=== PATIENT | male | born 1975 | race Caucasian/White ===

== ENCOUNTER 2018-04-01 15:19 | Outpatient (CLI) | payer BC, SELFPAY ==
[2018-04-01] VITALS (12 sets, daily range): BP systolic 90–106; BP diastolic 54–62; PULSE 74–94; RESP 16–20; TEMP 36.7–36.9; O2SAT 98–100; BMI 25.5
[2018-04-01] MEDS: DiphenhydrAMINE 25 MG Capsule PO (16:12)
[2018-04-01] MEDS: Acetaminophen 325 MG Tablet 650 MG PO (16:12)
[2018-04-01] MEDS: Immune Globulin 20 gm Premixed Solution IV ×3 (16:42→20:01)
--- NOTE | 2018-04-01 17:19 | NURSING ---
pt arrived from infusion center.. IVIG was started in infusion center and continued on floor.
[2018-04-01] MEDS: Immune Globulin 10 gm Premixed Solution IV (20:55)
--- NOTE | 2018-04-01 21:35 | NURSING ---
PT was able to reach 4 mg/kg on his IVIG infusion. He could have been increased to 4.5 but there was an emergency on the floor and this RN had to leave pt's side immediately. He denies having any difficulties and he is voiding fine. Vital signs are stable. Pt and were instructed on possible side effects and a way to contact the physician if they have concerns or can come to ER. Pt's saline lock was left in because he is returning for another infusion on 04/02/18. Talked to ER registration to see if they knew when pt was to come back to infusion center and they are not aware of any information. Advised pt to contact nursing train operations supervisor on 04/02/18 to confirm arrangements.
== END 2018-04-01 21:45 | disposition home or self-care (01) ==
LOC: MEDOUTP 15:46 → MS3 15:48
PROVIDERS: Family Provider Family Medicine; PCP Family Medicine; Visit Provider Internal Medicine Hematology & Oncology
DX: D59.1 Other autoimmune hemolytic anemias (principal)
CPT/HCPCS: 96365; 96366 ×4; J7040; J1568

== ENCOUNTER 2018-04-02 10:45 | Outpatient (CLI) | payer BC, SELFPAY ==
[2018-04-02] VITALS (7 sets, daily range): BP systolic 97–109; BP diastolic 58–63; PULSE 77–92; RESP 12–18; TEMP 36.6–37.1; O2SAT 96–100; BMI 26.2
[2018-04-02] MEDS: Acetaminophen 325 MG Tablet 650 MG PO (11:28)
[2018-04-02] MEDS: DiphenhydrAMINE 25 MG Capsule PO (11:28)
[2018-04-02] MEDS: Immune Globulin 20 gm Premixed Solution IV ×3 (12:06→15:07)
[2018-04-02] MEDS: Immune Globulin 10 gm Premixed Solution IV (15:59)
== END 2018-04-02 16:37 | disposition home or self-care (01) ==
LOC: MEDOUTP 10:47 → MS2 10:48
PROVIDERS: Family Provider Family Medicine; PCP Family Medicine; Visit Provider Internal Medicine Hematology & Oncology
DX: D59.1 Other autoimmune hemolytic anemias (principal)
CPT/HCPCS: 96365; 96366 ×3; J1568

== ENCOUNTER 2018-04-17 09:19 | Emergency (ER) | payer BC, SELFPAY ==
[2018-04-17 09:22] VITALS: BP 103/65; PULSE 89; RESP 18; TEMP 36.6; O2SAT 99; BMI 25.2
--- NOTE | 2018-04-17 09:37 | ED.VISSUMM ---
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 Several weeks ago he had blood transfusions. Currently he is on chemotherapy for his autoimmune disorder. Today he is developed a rash on both upper extremities with itching and in his proximal thighs. No prior history. No known allergies. He is currently on prednisone and folic acid also. He denies any lip or tongue swelling. No wheezing or shortness of breath. Physical Examination: Vital signs are stable and afebrile. Pulse ox 9 9% room air no signs of hypoxia. He is in no distress. H EENT exam unremarkable. No swelling of his lips or tongue. No trouble swallowing or breathing. No stridor. No drooling. Neck nontender. Lungs clear to auscultation bilaterally. No wheezing. Heart regular rhythm no soft and nontender. He is moving all 4 extremities. They are neurovascularly intact. He has a rash on both forearms consistent with hives. Also in his proximal thighs. There is no cellulitis. There is no petechiae or purpura. There is no blistering or sloughing of skin. Back, chest and abdomen are unremarkable. Neurologically is awake and alert. Test Results: None Emergency Department Course and Treatment: Treated with IV Solu-Medrol. P.o. Pepcid. Treatment Plan: Pepcid and Benadryl. Along with continuing his current prednisone course. Follow-up with the industrial maintenance repairer helper Dr. Jared Seymour on Wednesday. 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 It may contain incorrect words, spelling, and punctuation that were not noted in review of the chart prior to signing ED Disposition - Plan for ED Patient: Chief Complaint: Rash Referrals: Олег Posey MD [Primary Care Provider] -
--- NOTE | 2018-04-17 09:40 | ED.DCSUM_ITS ---
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 Several weeks ago he had blood transfusions. Currently he is on chemotherapy for his autoimmune disorder. Today he is developed a rash on both upper extremities with itching and in his proximal thighs. No prior history. No known allergies. He is currently on prednisone and folic acid also. He denies any lip or tongue swelling. No wheezing or shortness of breath. Physical Examination: Vital signs are stable and afebrile. Pulse ox 9 9% room air no signs of hypoxia. He is in no distress. H EENT exam unremarkable. No swelling of his lips or tongue. No trouble swallowing or breathing. No stridor. No drooling. Neck nontender. Lungs clear to auscultation bilaterally. No wheezing. Heart regular rhythm no soft and nontender. He is moving all 4 extremities. They are neurovascularly intact. He has a rash on both forearms consistent with hives. Also in his proximal thighs. There is no cellulitis. There is no petechiae or purpura. There is no blistering or sloughing of skin. Back, chest and abdomen are unremarkable. Neurologically is awake and alert. Test Results: None Emergency Department Course and Treatment: Treated with IV Solu-Medrol. P.o. Pepcid. Treatment Plan: Pepcid and Benadryl. Along with continuing his current prednisone course. Follow-up with the travel cota Dr. Jared Seymour on Wednesday. 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 It may contain incorrect words, spelling, and punctuation that were not noted in review of the chart prior to signing ED Disposition - Plan for ED Patient: Chief Complaint: Rash Referrals: Олег Posey MD [Primary Care Provider] -
--- NOTE | 2018-04-17 09:40 | ED.DEP ---
ED Disposition - Plan for ED Patient: Disposition: Home or Assisted Living Chief Complaint: Rash Instructions: ED Allergic Reaction General Other Prescriptions: Famotidine [Pepcid] 40 mg PO DAILY #5 ml Referrals: Jared Seymour DO [STAFF PHYSICIAN] - As soon as possible Additional Instructions: Continue your current medications. Continue your prednisone. Also Benadryl for itching. Also Pepcid for the allergic reaction. Call follow-up with Dr. Jared Seymour. Return to the ER if you would start developing significant swelling of her lips or tongue. Or trouble breathing.
[2018-04-17] MEDS: Famotidine 20 MG Tablet 40 MG PO (09:48)
[2018-04-17] MEDS: MethylPREDNISolone 125 MG/2 ML Vial IV (09:48)
[2018-04-17 10:36] VITALS: BP 103/61; PULSE 67; RESP 16; O2SAT 100
== END 2018-04-17 10:37 | disposition home or self-care (01) ==
LOC: ED 09:54
PROVIDERS: Emergency Provider Emergency Medicine; Family Provider Family Medicine; PCP Family Medicine
DX: L50.0 Allergic urticaria (principal); D89.89 Other specified disorders involving the immune mechanism, not elsewhere classified; D64.81 Anemia due to antineoplastic chemotherapy
CPT/HCPCS: 96374; 99285; A4216

== ENCOUNTER → 2018-06-13 17:10 | Outpatient (CLI) | payer BC, SELFPAY ==
[2018-06-13 17:23] LABS: Absolute Neutrophil Count 2.9 X10^3/uL (2.0-7.7); Hematocrit 34.9 % (40-54); Hemoglobin 11.7 g/dl (13.0-16.5); Mean Corp Hgb Conc 33.5 g/gl (32-36); Mean Corpuscular Hgb 30.6 pg (27.0-32.0); Mean Corpuscular Volume 91.4 fL (80-94); Mean Platelet Vol. 10.7 fl (6.2-12.0); Platelet Count 158 K/mm3 (150-450); RBC Distribution Width CV 12.6 % (11.6-14.6); RBC Distribution Width SD 40.7 fl (35.1-43.9); Red Blood Count 3.82 M/mm3 (4.6-6.2); White Blood Count 4.1 K/mm3 (4.4-11.0)
[2018-06-13 17:45] LABS: Scan Indicated on CBC? Y/N NO
== END ==
PROVIDERS: Family Provider Family Medicine; PCP Family Medicine; Referring Provider Internal Medicine Hematology & Oncology; Visit Provider Internal Medicine Hematology & Oncology
DX: D59.1 Other autoimmune hemolytic anemias (principal)
CPT/HCPCS: 85027

== ENCOUNTER 2018-07-25 08:03 | Emergency (ER) | payer BC, SELFPAY ==
[2018-07-25 08:04] VITALS: BP 104/72; PULSE 78; RESP 18; TEMP 36.8; O2SAT 98; BMI 25.7
--- NOTE | 2018-07-25 08:18 | ED.VISSUMM ---
- ER Visit Summary Date of Service: 07/25/18 Chief Complaint: Left leg pain, cough History of Present Illness: The patient is a 43 M who presents with left leg pain for 2 days. He was carrying a piece of furniture when he dropped it on his leg. Pain is worse with walking. His pain is on the medial left calf. He also complains of cold symptoms. He has had a cough. No fevers. He is taken nothing for this at home. He has an autoimmune disorder and is currently on prednisone and folic acid. Physical Examination: Vital signs are reviewed. HEENT exam unremarkable. Heart is regular rate and rhythm. Lungs are clear. Abdomen soft. Left leg exam reveals tenderness of the medial left calf. There is ecchymosis noted. He does have some mild mid tibial tenderness. There is no swelling. Test Results: Tib-fib x-ray interpreted by myself reveals no fracture Emergency Department Course and Treatment: Patient has no fractures on x-ray. He will continue NSAIDs at home as well as ice. I will give him Mucinex D for his cold Treatment Plan: [] Disposition: Discharge Impression: Right lower extremity contusion, cold This note was generated with [employer] dictation software. It may contain incorrect words, spelling, and punctuation that were not noted in review of the chart prior to signing ED Disposition - Plan for ED Patient: Disposition: Home or Assisted Living Chief Complaint: Lower Extremity Injury Instructions: ED Contusion Lower Ext Prescriptions: Guaifenesin/Pseudoephedrne HCl [Mucinex D ER 600-60 mg Tablet] 1 ea PO BID #14 [id number] Referrals: Олег Posey MD [Primary Care Provider] -
--- NOTE | 2018-07-25 08:26 | RAD_ITS ---
STUDY: X-RAY - LEFT TIBIA AND FIBULA REASON FOR EXAM: Male, 43 years old. Pain and swelling following injury. TECHNIQUE: 2 view(s) four images of the tibia and fibula were obtained. COMPARISON: None. FINDINGS: Normal visualized tibia. Normal visualized fibula. Soft tissue swelling. RAD/Tibia & Fibula 2 Views IMPRESSION: Soft tissue swelling. Electronically Signed: Roland Tomlinson MD at 8:44 EST Tel [phone], Service support ,
--- NOTE | 2018-07-25 08:33 | ED.DEP ---
ED Disposition - Plan for ED Patient: Disposition: Home or Assisted Living Chief Complaint: Lower Extremity Injury Instructions: ED Contusion Lower Ext Prescriptions: Guaifenesin/Pseudoephedrne HCl [Mucinex D ER 600-60 mg Tablet] 1 ea PO BID #14 [id number] Referrals: Олег Posey MD [Primary Care Provider] -
== END 2018-07-25 08:46 | disposition home or self-care (01) ==
PROVIDERS: Emergency Provider Emergency Medicine; Family Provider Family Medicine; PCP Family Medicine
DX: S80.12XA Contusion of left lower leg, initial encounter (principal); W22.8XXA Striking against or struck by other objects, initial encounter; Y93.89 Activity, other specified; J00 Acute nasopharyngitis [common cold]; D89.89 Other specified disorders involving the immune mechanism, not elsewhere classified
CPT/HCPCS: 73590; 99282

== ENCOUNTER → 2019-07-10 13:45 | Outpatient (CLI) | payer BC, SELFPAY ==
[2019-07-10 14:10] LABS: International Normalized Ratio 1.7; Prothrombin Time (Protime)PT. 19.7 SECONDS (11.7-14.9)
== END ==
PROVIDERS: Family Provider Family Medicine; PCP Family Medicine; Referring Provider Internal Medicine Hematology & Oncology; Visit Provider Internal Medicine Hematology & Oncology
DX: M32.9 Systemic lupus erythematosus, unspecified (principal); D68.62 Lupus anticoagulant syndrome
CPT/HCPCS: 85610; 85730

== ENCOUNTER → 2019-07-28 09:56 | Outpatient (CLI) | payer BC, SELFPAY ==
[2019-07-28 10:28] LABS: International Normalized Ratio 1.6; Partial Thromboplast Time 47.3 Seconds (24.1-36.2); Prothrombin Time (Protime)PT. 19.1 SECONDS (11.7-14.9)
== END ==
PROVIDERS: Family Provider Family Medicine; PCP Family Medicine; Referring Provider Internal Medicine Hematology & Oncology; Visit Provider Internal Medicine Hematology & Oncology
DX: M32.9 Systemic lupus erythematosus, unspecified (principal); D68.62 Lupus anticoagulant syndrome
CPT/HCPCS: 85610; 85730

== ENCOUNTER → 2019-08-09 09:00 | Outpatient (CLI) | payer BC, SELFPAY ==
[2019-08-09 09:12] LABS: International Normalized Ratio 1.5; Prothrombin Time (Protime)PT. 18.2 SECONDS (11.7-14.9)
[2019-08-09 09:13] LABS: Partial Thromboplast Time 47.6 Seconds (24.1-36.2)
== END ==
PROVIDERS: Family Provider Family Medicine; PCP Family Medicine; Referring Provider Internal Medicine Hematology & Oncology; Visit Provider Internal Medicine Hematology & Oncology
DX: M32.9 Systemic lupus erythematosus, unspecified (principal); D68.62 Lupus anticoagulant syndrome
CPT/HCPCS: 85610; 85730

== ENCOUNTER → 2019-08-16 16:50 | Outpatient (CLI) | payer BC, SELFPAY ==
[2019-08-16 17:18] LABS: International Normalized Ratio 1.6; Partial Thromboplast Time 43.4 Seconds (24.1-36.2); Prothrombin Time (Protime)PT. 18.7 SECONDS (11.7-14.9)
== END ==
PROVIDERS: PCP Family Medicine; Referring Provider Internal Medicine Hematology & Oncology; Visit Provider Internal Medicine Hematology & Oncology
DX: M32.9 Systemic lupus erythematosus, unspecified (principal); D68.62 Lupus anticoagulant syndrome
CPT/HCPCS: 85610; 85730

== ENCOUNTER → 2019-08-30 | Outpatient (CLI) | payer BC, SELFPAY ==
[2019-08-30 17:11] LABS: International Normalized Ratio 1.4; Prothrombin Time (Protime)PT. 16.9 SECONDS (11.7-14.9)
== END | disposition home or self-care (01) ==
LOC: LABSPEC 16:45
PROVIDERS: PCP Family Medicine; Referring Provider Internal Medicine Hematology & Oncology; Visit Provider Internal Medicine Hematology & Oncology
DX: D68.62 Lupus anticoagulant syndrome (principal)
CPT/HCPCS: 85610; 85730

== ENCOUNTER → 2019-09-07 | Outpatient (CLI) | payer BC, SELFPAY ==
[2019-09-07 15:08] LABS: International Normalized Ratio 1.6; Partial Thromboplast Time 55.8 Seconds (24.1-36.2); Prothrombin Time (Protime)PT. 19.2 SECONDS (11.7-14.9)
== END | disposition home or self-care (01) ==
LOC: LABSPEC 14:42
PROVIDERS: PCP Family Medicine; Referring Provider Internal Medicine Hematology & Oncology; Visit Provider Internal Medicine Hematology & Oncology
DX: D68.62 Lupus anticoagulant syndrome (principal)
CPT/HCPCS: 85610; 85730

== ENCOUNTER → 2019-10-09 | Outpatient (CLI) | payer BC, SELFPAY ==
[2019-10-09 11:35] LABS: International Normalized Ratio 1.4
[2019-10-09 11:36] LABS: Partial Thromboplast Time 73.1 Seconds (24.1-36.2)
[2019-10-09 13:35] LABS: CPK Total, Creatine Kinase 13 U/L (39-308)
== END | disposition home or self-care (01) ==
PROVIDERS: PCP Family Medicine; Referring Provider Internal Medicine Hematology & Oncology; Visit Provider Internal Medicine Hematology & Oncology
DX: M32.9 Systemic lupus erythematosus, unspecified (principal); D68.62 Lupus anticoagulant syndrome; D59.1 Other autoimmune hemolytic anemias; R07.9 Chest pain, unspecified
CPT/HCPCS: 82550; 84484; 85610; 85730

== ENCOUNTER → 2021-07-23 08:13 | Outpatient (CLI) | payer BC, SELFPAY ==
[2021-07-23] MEDS: Pentamidine Isethionate 300 MG, Water For Injection,Sterile 6 ML INHALATION (08:35)
== END ==
PROVIDERS: PCP Family Medicine; Visit Provider Internal Medicine Hematology & Oncology
DX: D59.10 Autoimmune hemolytic anemia, unspecified (principal); D61.818 Other pancytopenia
CPT/HCPCS: 94642